=== PATIENT | male | born 2000 | race African-American/Black ===

== ENCOUNTER 2024-08-13 11:02 | Emergency (ER) | payer SELFPAY ==
[2024-08-13 11:20] VITALS: BP 115/73; PULSE 87; RESP 20; TEMP 36.6; O2SAT 100
--- NOTE | 2024-08-13 11:54 | PC.NURSE ---
PT HAS NOW DECIDED TO LEAVE AND GO TO URGENT CARE FOR TREATMENT. ADVISED TO RETURN IF NEEDED. AMBULATORY FROM ED WITH A STEADY GAIT.
== END 2024-08-13 13:39 | disposition left against medical advice (07) ==
LOC: ANHED 11:58
DX: S01.81XA Laceration without foreign body of other part of head, initial encounter (principal)
CPT/HCPCS: 99199

== ENCOUNTER 2024-08-13 12:56 | Emergency (ER) | payer BC, SELFPAY ==
[2024-08-13 13:09] VITALS: BP 114/77; PULSE 71; RESP 18; TEMP 36.6; O2SAT 100
--- NOTE | 2024-08-13 13:10 | ED.WOUNDLAC ---
HPI - Wound/Laceration General Chief Complaint: Wound/Laceration Stated Complaint: Laceration On Forehead Time Seen by Provider: 08/13/24 13:10 Source: patient Mode of arrival: ambulatory Limitations: no limitations History of Present Illness HPI narrative: 23 yo M presents with laceration to forehead. States around 11am a bowl fell out of cabinet when he opened it and hit his forehead. No LOC. Denies headache. Went to ER but states wait too long so left. All systems reviewed and negative except as noted above. Related Data Home Medications ?Medication ?Instructions ?Recorded ?Confirmed ?Last Taken ?Type No Home Medications 08/13/24 Unknown History Allergies Allergy/AdvReac Type Severity Reaction Status Date / Time No Known Allergies Allergy Verified 08/13/24 12:59 Review of Systems Review of Systems: CONSTITUTIONAL: Denies fever, chills, or sweats. EYES: Denies visual changes, redness, or discharge. ENT: Denies rhinorrhea, congestion, sore throat, or otalgia. CARDIOVASCULAR: Denies chest pain, palpitations, or edema. RESPIRATORY: Denies cough or dyspnea. GASTROINTESTINAL: Denies abdominal pain, nausea, vomiting, or diarrhea. GENITOURINARY: Denies dysuria or hematuria. SKIN: Denies rash or itching. reports laceration to forehead MUSCULOSKELETAL: Denies back pain, joint pain, or myalgia. NEUROLOGIC: Denies headache, numbness, or weakness. PSYCHIATRIC: Denies anxiety or depression. All other systems reviewed are negative, except as documented in HPI. PMFSH Comments At time of signature, agree with nursing past medical, surgical, social and family history. There is no relevant family history pertinent to the presenting complaint. Exam Narrative: GENERAL: This is a well-nourished, well-developed patient, in no apparent distress. HEAD: normocephalic, atraumatic. EYES: PERRL. Sclera clear/white. Vision is grossly intact. EARS: External ears normal NOSE: External nose normal NECK: Neck supple, non-tender without lymphadenopathy, masses or thyromegaly. CARDIOVASCULAR: Regular rate and rhythm without murmurs, gallops, or rubs. RESPIRATORY: Clear to auscultation. Breath sounds equal bilaterally. No wheezes, rales, or rhonchi. SKIN: warm, Dry,with no suspicious lesions or rash, good texture and turgor. 1 cm laceration to L side of forehead with scant bleeding NEURO: awake, alert, and oriented to person, place and time. There were no obvious focal neurologic abnormalities. EXTREMITIES: No joint tenderness, effusion, or edema noted. No calf tenderness. Negative Homans sign bilaterally. BACK: Nontender without deformity. No CVA tenderness. Course Course Level of Care: Express Care Visit Vital Signs Vital signs: Vital Signs Temperature 36.6 C 08/13/24 13:09 Pulse Rate 71 08/13/24 13:09 Respiratory Rate 18 08/13/24 13:09 Blood Pressure 114/77 08/13/24 13:09 Pulse Oximetry 100 08/13/24 13:09 Oxygen Delivery Room Air 08/13/24 13:09 Temperature 36.6 C 08/13/24 13:09 Pulse Rate 71 08/13/24 13:09 Respiratory Rate 18 08/13/24 13:09 Blood Pressure 114/77 08/13/24 13:09 Pulse Oximetry 100 08/13/24 13:09 Oxygen Delivery Room Air 08/13/24 13:09 reviewed Procedures Laceration Laceration 1: Date: 08/13/24 Time: 13:20 Site: face (forehead) Side (If applicable): left Size (cm): 1 Description: flap and irregular ====== Skin Level ====== Skin layer closed with: dermabond ====== Subcutaneous Layer ====== ====== Muscle Layer ====== ====== Tendon Layer ====== MDM - Wound/Laceration MDM Narrative Medical decision making narrative: laceration to forehead repairs with skin adhesive. Please be advised this is a medical document. It is intended for [id number] communication. It is written in medical language and may contain unfamiliar abbreviations or verbiage. Medical documents are intended to carry relevant information, facts as evident, and the clinical opinion of the practitioner at the time of the encounter. This report may have been done utilizing a voice recognition system. Attempts have been made to correct errors. However, there may be uncorrected grammatical, spelling, and recognition errors present. The file time of this note does not necessarily represent the time of service. Discharge Plan Discharge Clinical Impression: Facial laceration Qualifiers: Encounter type: initial encounter Qualified Code(s): S01.81XA - Laceration without foreign body of other part of head, initial encounter Patient Disposition: Home, Self-Care Condition: Stable Instructions: Facial Laceration (ED) Additional Instructions: Keep skin adhesive clean and dry. IF IT BECOMES WET, PAT DRY WITH A TOWEL. Do not pull or pick at skin adhesive. Let it fall off on its own. Do not apply lotions or ointments over skin adhesive. After wound heals, may apply Aquaphor to minimize with scarring. Patient Language: Italian Prescriptions: No Action No Home Medications Follow-up/Referrals: PHYSICIAN,CEMENT CONTRACTOR [Primary Care Provider] - Time of Disposition: 13:21
== END 2024-08-13 13:25 | disposition home or self-care (01) ==
PROVIDERS: Emergency Provider Nurse Practitioner Family
DX: S01.81XA Laceration without foreign body of other part of head, initial encounter (principal); W20.8XXA Other cause of strike by thrown, projected or falling object, initial encounter
CPT/HCPCS: 12011; 99202; G0463